=== PATIENT | female | born 1975 | race African-American/Black ===

== ENCOUNTER 2018-07-25 01:23 | Emergency (ER) | payer MEDICAID ==
[~2018-07-25] VITALS: Ht 165.1 cm; Wt 102.1 kg
[2018-07-25 01:30] VITALS: BP 146/92
[2018-07-25] MEDS ORDERED: NEOMYCIN-BACITRACIN-POLYM 15GM TOP OINT TOP SCH (04:45)
[2018-07-25] MEDS ORDERED: TETANUS-DIPTH-ACEL PERTUSSIS 0.5ML SYRG IM ONE (04:45)
== END 2018-07-25 05:40 | disposition home or self-care (01) ==
LOC: ER 01:28
DX: S50.872A Other superficial bite of left forearm, initial encounter (principal); W54.0XXA Bitten by dog, initial encounter; Y93.89 Activity, other specified; Y99.8 Other external cause status; Y92.89 Other specified places as the place of occurrence of the external cause
CPT/HCPCS: 90471; 90715